=== PATIENT | female | born 1995 | race Caucasian/White ===

== ENCOUNTER 2022-07-22 20:22 | Inpatient (IN) | payer OTHER ==
[~2022-07-22] VITALS: Ht 162.6 cm; Wt 88.9 kg
[2022-07-22 20:44] VITALS: BP 122/67
[2022-07-22] MEDS ORDERED: PRENTAB9 PO (20:47)
[2022-07-22] MEDS ORDERED: ACETAMINOPHEN TAB 650MG DOSE (2X325MG) PO PRN (21:35)
[2022-07-22] MEDS ORDERED: DOCUSATE SODIUM 100MG CAPSULE PO PRN (21:35)
[2022-07-22] MEDS ORDERED: diphenhydrAMINE 25MG CAP PO PRN (21:35)
[2022-07-22 21:55] VITALS: BP 105/62
[2022-07-22 21:57] LABS: HEMATOCRIT 34.5 % (36.0-47.0); HEMOGLOBIN 11.3 g/dl (12.0-15.5); MEAN CORPUSCULAR HEMOGLOBIN 26.7 pg (27.0-33.0); MEAN CORPUSCULAR HGB CONC 32.8 g/dl (32.0-36.5); MEAN CORPUSCULAR VOLUME 81.4 fl (80.0-96.0); PLATELET COUNT, AUTOMATED 287 10^3/uL (150-450); RED BLOOD COUNT 4.24 10^6/uL (4.00-5.40); WHITE BLOOD COUNT 15.3 10^3/uL (4.0-10.0)
[2022-07-22] MEDS ORDERED: AZITHROMYCIN 250MG TABLET PO ONE (22:00)
[2022-07-22] MEDS: CLINDAMYCIN 900 MG in IV 1 EA IV SCH (22:05)
[2022-07-22] MEDS ORDERED: GENTAMICIN 400 MG in D5W 100 ML IV SCH (23:00)
[2022-07-22 23:01] VITALS: BP 116/64
[2022-07-23] VITALS (16 sets, daily range): BP systolic 82–119; BP diastolic 51–70
[2022-07-23] MEDS ORDERED: HOME MED LIST COMPLETE! XX SCH (00:50)
[2022-07-23 02:02] LABS: GC DNA AMPLIFICATION NEGATIVE (NEGATIVE)
[2022-07-23] MEDS: CLINDAMYCIN 900 MG in IV 1 EA IV SCH ×3 (05:50→21:36)
[2022-07-23] MEDS ORDERED: ONDANSETRON 4MG ORAL DISINTEGRATING TAB PO PRN (06:25)
[2022-07-23] MEDS: PRENATAL VITAMINS CHEWABLE TABLET PO SCH (07:48)
[2022-07-23] MEDS: SLF 3 ML SYR IV SCH ×2 (14:00→21:36)
[2022-07-23] MEDS ORDERED: SLF 3 ML SYR IV PRN (16:55)
[2022-07-23] MEDS ORDERED: BETAMETHASONE SOLUSPAN 6MG/ML 5ML VIAL (J0702 PER 3MG) IM ONE (17:00)
[2022-07-24] MEDS ORDERED: GENTAMICIN 400 MG in D5W 100 ML IV ONE ×2
[2022-07-24 02:00] VITALS: BP 98/53
[2022-07-24] MEDS: SLF 3 ML SYR IV SCH ×3 (05:59→22:30)
[2022-07-24] MEDS: CLINDAMYCIN 900 MG in IV 1 EA IV SCH ×2 (06:00→14:09)
[2022-07-24 06:14] VITALS: BP 108/59
[2022-07-24] MEDS: PRENATAL VITAMINS CHEWABLE TABLET PO SCH (09:00)
[2022-07-24 10:06] VITALS: BP 106/55
[2022-07-24 14:01] VITALS: BP 118/59
[2022-07-24 17:56] VITALS: BP 107/57
[2022-07-24 22:00] VITALS: BP 109/61
[2022-07-24] MEDS: CLINDAMYCIN 150MG CAPSULE PO SCH (22:29)
[2022-07-25] VITALS (34 sets, daily range): BP systolic 107–184; BP diastolic 55–107
[2022-07-25] MEDS: CLINDAMYCIN 150MG CAPSULE PO SCH (05:48)
[2022-07-25] MEDS: SLF 3 ML SYR IV SCH ×2 (05:49→14:00)
[2022-07-25] MEDS ORDERED: LACTATED RINGER'S 1000 ML IV STA (08:37)
[2022-07-25] MEDS ORDERED: OXYTOCIN DRIP 30 UNITS in IV 1 EA IV PRN (08:40)
[2022-07-25] MEDS ORDERED: LIDOCAINE 1% MDV 20ML VIAL INFIL PRN (08:40)
[2022-07-25] MEDS ORDERED: CARBOPROST TROMETHAMINE 250 MCG/ML AMP IM PRN (08:40)
[2022-07-25] MEDS ORDERED: METHYLERGONOVINE MALEATE 0.2 MG/ML VIAL (J2210) IM PRN (08:40)
[2022-07-25] MEDS ORDERED: TRANEXAMIC ACID INJection 1,000 MG in NS 100 ML IV PRN (08:40)
[2022-07-25] MEDS ORDERED: OXYTOCIN INJ 10UNITS/ML 1ML VIAL IM PRN (08:40)
[2022-07-25] MEDS ORDERED: VANCOMYCIN HCL 1,000 MG, VIAL MATE ADAPTER 1 EACH in NS 250 ML IV SCH (09:00)
[2022-07-25 09:06] LABS: HEMATOCRIT 34.8 % (36.0-47.0); HEMOGLOBIN 11.2 g/dl (12.0-15.5); MEAN CORPUSCULAR HEMOGLOBIN 26.9 pg (27.0-33.0); MEAN CORPUSCULAR HGB CONC 32.2 g/dl (32.0-36.5); MEAN CORPUSCULAR VOLUME 83.7 fl (80.0-96.0); PLATELET COUNT, AUTOMATED 297 10^3/uL (150-450); RED BLOOD COUNT 4.16 10^6/uL (4.00-5.40); WHITE BLOOD COUNT 21.7 10^3/uL (4.0-10.0)
[2022-07-25] MEDS: PRENATAL VITAMINS CHEWABLE TABLET PO SCH (09:09)
[2022-07-25] MEDS ORDERED: miSOPROStol 50MCG 1/2 TABLET PO ONE (10:15)
[2022-07-25] MEDS ORDERED: OXYTOCIN DRIP 30 UNITS in IV 1 EA IV SCH (14:50)
[2022-07-25] MEDS: LR 1,000 ML IV SCH ×2 (15:05→17:36)
[2022-07-25] MEDS ORDERED: LR 500 ML IV PRN (16:45)
[2022-07-25] MEDS ORDERED: diphenhydrAMINE 50MG/ML VIAL IV PRN (16:45)
[2022-07-25] MEDS ORDERED: ePHEDrine SULFATE 25 MG/5 ML(5MG/ML) SYRINGE IVP PRN (16:45)
[2022-07-25] MEDS ORDERED: FENTANYL/ROPIVACAINE/NACL BAG 100 ML EPIDURAL SCH (16:45)
[2022-07-25] MEDS ORDERED: ONDANSETRON 4MG 2ML VIAL IV PRN (16:45)
[2022-07-25] MEDS ORDERED: NALOXONE INJ 0.4MG/1ML VIAL IV PRN (16:45)
[2022-07-25] MEDS ORDERED: EPIDURAL/PCA KEYS XX PRN (16:45)
[2022-07-25] MEDS ORDERED: ACETAMINOPHEN 500 MG TAB PO PRN (18:45)
[2022-07-25] MEDS ORDERED: DIBUCAINE 1% OINTMENT 30GM TOP PRN (18:45)
[2022-07-25] MEDS ORDERED: METHYLERGONOVINE MALEATE 0.2 MG TAB PO PRN (18:45)
[2022-07-25] MEDS ORDERED: IBUPROFEN 600MG TAB PO PRN (18:45)
[2022-07-25] MEDS ORDERED: MOM 30ML SUSPENSION UDC PO PRN (18:45)
[2022-07-25] MEDS ORDERED: RHOGAM 300 MCG (1500 IU) INJ (J2790) IM SCH (18:45)
[2022-07-25] MEDS ORDERED: ANUSOL HC CREAM 30GM TOP PRN (18:45)
[2022-07-25] MEDS ORDERED: DOCUSATE SODIUM 100MG CAPSULE PO PRN (18:45)
[2022-07-25] MEDS ORDERED: ACETAMINOPHEN TAB 650MG DOSE (2X325MG) PO PRN (18:45)
[2022-07-25] MEDS ORDERED: IBUPROFEN 800 MG TAB PO PRN (18:45)
[2022-07-26 06:00] VITALS: BP 111/62
[2022-07-26] MEDS: PRENATAL VITAMINS CHEWABLE TABLET PO SCH (07:55)
[2022-07-26] MEDS ORDERED: BOOSTRIX/ADACEL VACCINE (DIPHTH/PERTUSS/ACELL/TETANUS) 0.5ML SYR IM.IMMUN ONE (09:00)
[2022-07-26 18:00] VITALS: BP 132/79
[2022-07-27 06:00] VITALS: BP 123/77
[2022-07-27] MEDS: PRENATAL VITAMINS CHEWABLE TABLET PO SCH (08:31)
[2022-07-27] MEDS ORDERED: MEASLES,MUMPS,RUBELLA VACCINE INJ (MMR-II) (90707) SC.IMMUN ONE (09:00)
[2022-07-27] MEDS ORDERED: INFLUENZA QUADRIVALENT PF VACCINE 0.5ML SYRINGE IM.IMMUN ONE (09:00)
== END 2022-07-27 11:20 | disposition home or self-care (01) | DRG 560 ==
LOC: M LDO 20:22 → M LDI 22:25 → M OBS 07-23 17:14 → M LDI 07-25 08:13 → M OBS 07-25 20:14
PROVIDERS: ADMIT Advanced Practice Midwife; ATTEND Advanced Practice Midwife
PROC: 10E0XZZ Delivery of Products of Conception, External Approach (ICD-10-PCS; principal; 2022-07-25)
PROC: 3E0P7GC Introduction of Other Therapeutic Substance into Female Reproductive, Via Natural or Artificial Opening (ICD-10-PCS; 2022-07-25)
DX: O42.113 Preterm premature rupture of membranes, onset of labor more than 24 hours following rupture, third trimester (principal); Z37.0 Single live birth; Z3A.33 33 weeks gestation of pregnancy; O69.81X0 Labor and delivery complicated by cord around neck, without compression, not applicable or unspecified; O99.824 Streptococcus B carrier state complicating childbirth

== ENCOUNTER → 2023-11-13 | Outpatient (CLI) | payer OTHER ==
[~2023-11-13] MED LIST: PRENTAB9 PO
[2023-11-13 15:58] LABS: HEMATOCRIT 37.7 % (36.0-47.0); HEMOGLOBIN 12.6 g/dl (12.0-15.5); MEAN CORPUSCULAR HEMOGLOBIN 28.1 pg (27.0-33.0); MEAN CORPUSCULAR HGB CONC 33.4 g/dl (32.0-36.5); PLATELET COUNT, AUTOMATED 269 10^3/uL (150-450); RED BLOOD COUNT 4.49 10^6/uL (4.00-5.40); WHITE BLOOD COUNT 12.5 10^3/uL (4.0-10.0)
[2023-11-13 16:50] LABS: HIV 1&2 SCREEN NEGATIVE (NEGATIVE)
[2023-11-13 16:58] LABS: HEPATITIS C VIRUS ABY INDEX < 0.02 INDEX (<0.8)
[2023-11-13 17:08] LABS: GC DNA AMPLIFICATION NEGATIVE (NEGATIVE)
== END ==
LOC: M PLALAB 14:51
PROVIDERS: ATTEND Advanced Practice Midwife
DX: Z34.92 Encounter for supervision of normal pregnancy, unspecified, second trimester (principal); Z11.3 Encounter for screening for infections with a predominantly sexual mode of transmission; Z11.59 Encounter for screening for other viral diseases; Z79.899 Other long term (current) drug therapy

== ENCOUNTER → 2024-01-02 | Outpatient (CLI) | payer OTHER | LOC: M RAD 14:43 | PROVIDERS: ATTEND Advanced Practice Midwife | DX: Z34.82 Encounter for supervision of other normal pregnancy, second trimester (principal) ==

== ENCOUNTER → 2024-01-24 | Outpatient (CLI) | payer OTHER ==
[2024-01-24 15:52] LABS: HEMATOCRIT 34.5 % (36.0-47.0); HEMOGLOBIN 11.2 g/dl (12.0-15.5); MEAN CORPUSCULAR HEMOGLOBIN 27.9 pg (27.0-33.0); MEAN CORPUSCULAR HGB CONC 32.5 g/dl (32.0-36.5); PLATELET COUNT, AUTOMATED 291 10^3/uL (150-450); RED BLOOD COUNT 4.01 10^6/uL (4.00-5.40); WHITE BLOOD COUNT 13.4 10^3/uL (4.0-10.0)
[2024-01-24 17:32] LABS: GC DNA AMPLIFICATION NEGATIVE (NEGATIVE)
== END ==
LOC: M PLALAB 12:47
PROVIDERS: ATTEND Advanced Practice Midwife
DX: Z34.92 Encounter for supervision of normal pregnancy, unspecified, second trimester (principal); Z3A.00 Weeks of gestation of pregnancy not specified

== ENCOUNTER → 2024-03-01 | Outpatient (CLI) | payer OTHER ==
[~2024-03-01] MED LIST changes: +COLA100C5 PO; +IBUP80TA PO; +PERCOCET PO; +VITAD400CA FT
== END ==
LOC: M WHC 15:44
PROVIDERS: ATTEND Specialist
DX: O36.5931 Maternal care for other known or suspected poor fetal growth, third trimester, fetus 1 (principal); Z3A.33 33 weeks gestation of pregnancy

== ENCOUNTER → 2024-03-08 | Outpatient (REF) | payer OTHER | LOC: M SFHCWAGY 12:23 | PROVIDERS: ATTEND Advanced Practice Midwife | DX: O36.5990 Maternal care for other known or suspected poor fetal growth, unspecified trimester, not applicable or unspecified (principal); Z3A.00 Weeks of gestation of pregnancy not specified ==

== ENCOUNTER 2024-03-09 15:11 | Inpatient (IN) | payer OTHER ==
[2024-03-09] VITALS (15 sets, daily range): BP systolic 106–121; BP diastolic 56–73
[~2024-03-09] VITALS: Ht 162.6 cm; Wt 88.8 kg
[~2024-03-09 15:11] MED LIST changes: -COLA100C5 PO; -IBUP80TA PO; -PERCOCET PO; -VITAD400CA FT
[2024-03-09] MEDS ORDERED: VITAD400CA FT (15:24)
[2024-03-09] MEDS ORDERED: HOME MED LIST COMPLETE! XX SCH (15:25)
[2024-03-09] MEDS: LACTATED RINGER'S 1000 ML IV STA (16:28)
[2024-03-09] MEDS ORDERED: OXYTOCIN DRIP 30 UNITS in IV 1 EA IV PRN (16:30)
[2024-03-09] MEDS ORDERED: METHYLERGONOVINE MALEATE 0.2MG/ML 1ML VIAL IM PRN (16:30)
[2024-03-09] MEDS ORDERED: TRANEXAMIC ACID INJection 1,000 MG in NS 100 ML IV PRN (16:30)
[2024-03-09] MEDS ORDERED: LIDOCAINE 1% MDV 20ML VIAL INFIL PRN (16:30)
[2024-03-09] MEDS ORDERED: CARBOPROST TROMETHAMINE 250 MCG/ML AMP IM PRN (16:30)
[2024-03-09] MEDS: OXYTOCIN DRIP 30 UNITS in IV 1 EA IV SCH (16:56)
[2024-03-09] MEDS: VANCOMYCIN HCL 1,000 MG, VIAL MATE ADAPTER 1 EACH in NS 250 ML IV SCH (16:56)
[2024-03-09] MEDS: LR 1,000 ML IV SCH (16:56)
[2024-03-09] MEDS: BETAMETHASONE SOLUSPAN 6MG/ML 5ML VIAL IM SCH (16:57)
[2024-03-09 17:14] LABS: HEMATOCRIT 31.7 % (36.0-47.0); HEMOGLOBIN 10.3 g/dl (12.0-15.5); MEAN CORPUSCULAR HEMOGLOBIN 26.4 pg (27.0-33.0); MEAN CORPUSCULAR HGB CONC 32.5 g/dl (32.0-36.5); MEAN CORPUSCULAR VOLUME 81.3 fl (80.0-96.0); PLATELET COUNT, AUTOMATED 294 10^3/uL (150-450); WHITE BLOOD COUNT 11.8 10^3/uL (4.0-10.0)
[2024-03-09 17:59] LABS: Trichomonas vaginalis (AMP) NOT DETECTED (NEGATIVE)
[2024-03-09 18:24] LABS: GC DNA AMPLIFICATION NEGATIVE (NEGATIVE)
[2024-03-10] VITALS (14 sets, daily range): BP systolic 91–124; BP diastolic 52–73; TEMP 95.3; O2SAT 96–100
[2024-03-10] MEDS: AZITHROMYCIN INJ 500 MG, VIAL MATE ADAPTER 1 EACH in NS 250 ML IV ONE (01:11)
[2024-03-10] MEDS: CLINDAMYCIN 900 MG in IV 1 EA IV ONE (01:11)
[2024-03-10] MEDS: BICITRA 30ML SOLN UDC PO ONE (01:11)
[2024-03-10] MEDS ORDERED: ONDANSETRON 4MG 2ML VIAL As Ordered ONE (01:24)
[2024-03-10] MEDS: GENTAMICIN 400 MG in D5W 50 ML IV ONE (01:24)
[2024-03-10] MEDS ORDERED: KETOROLAC 60MG 2ML VIAL As Ordered ONE (01:24)
[2024-03-10] MEDS ORDERED: MORPHINE PRES-FREE INJ 10 MG/10 ML VIAL As Ordered ONE (01:24)
[2024-03-10] MEDS ORDERED: PHENYLephrine 500MCG 5ML (100MCG/ML) SYRINGE As Ordered ONE (01:31)
[2024-03-10] MEDS ORDERED: ePHEDrine SULFATE 25 MG/5 ML(5MG/ML) SYRINGE As Ordered ONE (01:31)
[2024-03-10] MEDS ORDERED: OXYTOCIN 30UNITS IN 0.9% NaCl 500ML IV BAG As Ordered ONE (01:35)
[2024-03-10] MEDS ORDERED: ACETAMINOPHEN 1000MG 100ML IV BAG As Ordered ONE (01:35)
[2024-03-10 01:45] LABS: CORD GAS ABE A -8.5; CORD GAS HCO3 A 17.4 MMOL/L; CORD GAS O2 SAT A 51.1 %; CORD GAS PCO2 A 37.2 mmHg; CORD GAS PH A 7.288 UNITS; CORD GAS PO2 A 19.7 mmHg; CORD GAS SBC A 16.8 MMOL/L; CORD GAS TCO2 A 18.5 MMOL/L
[2024-03-10] MEDS ORDERED: diphenhydrAMINE 50MG/ML VIAL IV PRN (02:15)
[2024-03-10] MEDS ORDERED: METOCLOPRAMIDE INJ 10MG/2ML VIAL IV PRN (02:15)
[2024-03-10] MEDS ORDERED: oxyCODONE 5MG TAB PO PRN (02:15)
[2024-03-10] MEDS ORDERED: **NOTE PATIENT COMMENT** MISC XX SCH (02:15)
[2024-03-10] MEDS ORDERED: NALOXONE INJ 0.4MG/1ML VIAL IV PRN ×2 (02:15)
[2024-03-10] MEDS ORDERED: ONDANSETRON 4MG 2ML VIAL IV PRN (02:15)
[2024-03-10] MEDS: LR 1,000 ML IV SCH (02:15)
[2024-03-10] MEDS ORDERED: fentaNYL 100 MCG/2 ML INJECTION IV PRN (02:15)
[2024-03-10] MEDS ORDERED: SIMETHICONE 80MG CHEW TAB PO PRN (02:25)
[2024-03-10] MEDS ORDERED: PERCOCET 5MG/325MG TAB PO PRN ×2 (02:25)
[2024-03-10] MEDS ORDERED: LR 1,000 ML IV SCH (02:25)
[2024-03-10] MEDS ORDERED: PROMETHAZINE 25 MG TAB PO PRN (02:25)
[2024-03-10] MEDS ORDERED: ANUSOL HC CREAM 30GM TOP PRN (02:25)
[2024-03-10] MEDS ORDERED: CALCIUM CARBONATE 500 MG CHEW U/D PO PRN (02:25)
[2024-03-10] MEDS ORDERED: IBUPROFEN 800 MG TAB PO PRN (02:25)
[2024-03-10] MEDS ORDERED: MORPHINE 4 MG/ML 1ML VIAL IV PRN (02:25)
[2024-03-10] MEDS ORDERED: RHO(D) IMMUNE GLOBULIN/MALTOSE 500MCG(2500IU)/2.2ML VIAL (WINRHO) IM SCH (02:25)
[2024-03-10] MEDS ORDERED: PERCOCET PO (02:43)
[2024-03-10] MEDS ORDERED: COLA100C5 PO (02:43)
[2024-03-10] MEDS ORDERED: IBUP80TA PO (02:43)
[2024-03-10] MEDS: OXYTOCIN DRIP 30 UNITS in IV 1 EA IV SCH (02:49)
[2024-03-10] MEDS: SLF 3 ML SYR IV SCH (03:00)
[2024-03-10] MEDS: KETOROLAC 30 MG/ML 1ML VIAL IV SCH (08:00)
[2024-03-10] MEDS: DOCUSATE SODIUM 100MG CAPSULE PO SCH (08:04)
[2024-03-10] MEDS: PRENATAL VITAMINS CHEWABLE TABLET PO SCH (08:04)
[2024-03-10] MEDS: ONDANSETRON 4MG 2ML VIAL IV PRN (08:21)
[2024-03-10 11:51] LABS: HEMATOCRIT 27.5 % (36.0-47.0); MEAN CORPUSCULAR HEMOGLOBIN 26.6 pg (27.0-33.0); MEAN CORPUSCULAR HGB CONC 32.7 g/dl (32.0-36.5); MEAN CORPUSCULAR VOLUME 81.4 fl (80.0-96.0); PLATELET COUNT, AUTOMATED 275 10^3/uL (150-450); RED BLOOD COUNT 3.38 10^6/uL (4.00-5.40)
[2024-03-11 02:00] VITALS: BP 115/59; O2SAT 98
[2024-03-11] MEDS: IBUPROFEN 800 MG TAB PO SCH (04:10)
[2024-03-11 06:00] VITALS: BP 110/65; O2SAT 100
[2024-03-11 10:00] VITALS: BP 119/66; O2SAT 98
[2024-03-11 14:00] VITALS: BP 130/71; O2SAT 99
[2024-03-11 18:00] VITALS: BP 132/78; O2SAT 98
[2024-03-11 22:00] VITALS: BP 120/63; O2SAT 98
[2024-03-12 06:00] VITALS: BP 131/70; O2SAT 97
[2024-03-12] MEDS ORDERED: MEASLES,MUMPS,RUBELLA VACCINE INJ (MMR-II) SC.IMMUN ONE (09:00)
== END 2024-03-12 13:40 | disposition home or self-care (01) | DRG 786 ==
LOC: M LDO 15:11 → M LDI 16:41 → M OBS 03-10 03:49
PROVIDERS: ADMIT Obstetrics & Gynecology; ATTEND Obstetrics & Gynecology
PROC: 10D00Z1 Extraction of Products of Conception, Low, Open Approach (ICD-10-PCS; principal; 2024-03-10 01:15)
DX: O42.013 Preterm premature rupture of membranes, onset of labor within 24 hours of rupture, third trimester (principal); O45.8X3 Other premature separation of placenta, third trimester; Z37.0 Single live birth; Z3A.35 35 weeks gestation of pregnancy; O36.5990 Maternal care for other known or suspected poor fetal growth, unspecified trimester, not applicable or unspecified